=== PATIENT | female | born 1980 | race Caucasian/White ===

== ENCOUNTER → 2017-06-02 | Outpatient (CLI) | payer BC ==
[~2017-06-02] MED LIST: AVIANE 0.02 MG-1 TAB PO; CIPRO 500MG TA500 MG PO; FLOMAX 0.4MG C0.4 MG PO; LEVOTHYROXIN0.025 M1 PO; LEXAPRO 10 MG T10 MG PO; MACROBID 100MG100 MG PO; MEDROL 4MG. DOSE4 MG PO; MOBIC7.5 MG PO; MOTRIN 400MG.400 MG PO; PAXIL20 M1; SYNTHROID0.025 MG; ZOFRAN4 MG PO
--- NOTE | 2017-06-02 11:22 | RADIOLOGY REPORT PS360 ---
ESOPHAGUS (BA. SWALLOW) COMPARISON: None HISTORY: Possible thyroid goiter some difficulty swallowing TECHNIQUE: Fluoroscopy while swallowing barium FINDINGS: The swallowing function is normal. Spot films of the cervical esophagus show no abnormality. Suspect motility is normal and is no hiatal hernia or reflux seen. IMPRESSION: Normal barium swallow
--- NOTE | 2017-06-05 09:40 | RADIOLOGY REPORT PS360 ---
US ULTRASOUND THYROID PROCEDURE: Multiple sagittal & transverse ultrasound images of the thyroid.BH HISTORY: Enlarged thyroid. COMPARISON: None ----- FINDINGS: Inhomogeneous architecture mildly enlarged bilaterally making it difficult to discern a discrete nodule. RIGHT LOBE: 4.2 cm length on my measurement X is 2.1 cm x 1.2 cm AP Diffusely coarse inhomogeneous right lobe with no discrete identified nodule. Slight increased vascularity. Findings likely reflect underlying thyroiditis or although could reflect developing multinodular changes LEFT LOBE:. 4 cm length bymy measurement x 2.3 x 1.1 cm Diffusely inhomogeneous with no discrete or well-defined nodule. Slight increased vascularity. .: ISTHMUS: Normal thickness less than 4 mm. IMPRESSION Borderline to mild thyromegaly Prominent inhomogeneous character throughout, but with no well-defined discrete nodule in either right nor left lobe... Slight increase color Doppler flow bilateral. . Overall Pattern suspect for a thyroiditis. Clinical correlation required
== END ==
LOC: RAD 09:58
DX: E01.0 Iodine-deficiency related diffuse (endemic) goiter (principal)